=== PATIENT | male | born 1995 | race Caucasian/White ===

== ENCOUNTER 2023-08-26 13:43 | Outpatient (CLI) | payer BC, MEDICAID, SELFPAY | END 2023-08-26 13:44 | disposition home or self-care (01) | PROVIDERS: Visit Provider Physician Assistant | DX: R31.9 Hematuria, unspecified (principal); R31.0 Gross hematuria; J02.9 Acute pharyngitis, unspecified; N20.0 Calculus of kidney | CPT/HCPCS: 87086 ==